=== PATIENT | female | born 1935 | race Caucasian/White ===

== ENCOUNTER 2021-07-17 03:56 | Emergency (ER) | payer MEDICARE, OTHER ==
[~2021-07-17] VITALS: Ht 160 cm; Wt 55.3 kg
[~2021-07-17 03:56] MED LIST: ATENPOW10; LEVOTHYROXINE
[2021-07-17] MEDS ORDERED: SODIUM CHLORIDE 0.9% 500 ML IVB ONE (08:15)
[2021-07-17] MEDS ORDERED: METOCLOPRAMIDE HCL 5MG/ml INJ 2ml VIAL IV ONE (08:15)
[2021-07-17] MEDS ORDERED: HYDROmorphone HCL 2 MG/ML VL/or syr IV ONE (08:15)
[2021-07-17] MEDS ORDERED: SODIUM CHLORIDE 0.9% 1,000 ML IV ONE (08:15)
[2021-07-17 09:27] LABS: Basophils # (auto) 0 10 ^3/uL (0-0.2); Basophils % (auto) 1.3 % (0.0-2.0); Eosinophils # (auto) 0 10 ^3/uL (0-0.8); Eosinophils % (auto) 0.1 % (0.0-7.0); Hemoglobin 13.3 g/dL (12.2-16.2); Mean Corpuscular Hemoglobin 31.5 pg (28.0-32.0); Mean Corpuscular Hgb Conc. 35.1 g/dL (32.0-36.0); Mean Corpuscular Volume 89.7 fL (80.0-100.0); Monocytes # (auto) 0.5 10 ^3/uL (0-1.3); Monocytes % (auto) 15.4 % (0.0-12.0); Neutrophils # (auto) 1.4 10 ^3/uL (1.6-8.6); Neutrophils % (auto) 49.2 % (37.0-80.0); Red Blood Cells 4.23 10^6/uL (4.0-5.20); Red Cell Distribution Width 22.1 % (11.8-14.3); White Blood Cell 2.9 10^3/uL (4.4-10.8)
[2021-07-17 09:32] LABS: INR 1.05 (0.9-1.15); Partial Thromboplastin Time 27.5 sec (23.6-33.0)
[2021-07-17 11:24] LABS: Urine Bacteria NONE SEEN /hpf (None Seen); Urine Blood Negative /uL (Negative); Urine Specific Gravity 1.009 (1.001-1.035); Urine WBC 7 /hpf (0 - 5)
[2021-07-17 11:44] LABS: Albumin 1.8 g/dL (3.4-5.0); Calcium 6.6 mg/dL (8.5-10.1); Magnesium 1.9 mg/dL (1.6-2.6)
[2021-07-17 11:47] LABS: Bilirubin, Total 0.9 mg/dL (0.2-1.0); Total Protein 4.3 g/dL (6.4-8.2)
[2021-07-17 12:24] LABS: Potassium 2.1 mmol/L (3.5-5.1)
[2021-07-17] MEDS ORDERED: POTASSIUM EFFERVESENT TAB 25 MEQ PO ONE ×2 (12:30→15:00)
[2021-07-17] MEDS ORDERED: CALCIUM GLUC 1,000mg/50ml-NS 50 ML IV ONE (15:00)
[2021-07-17] MEDS ORDERED: IOHEXOL 300 MG/ML 100ML BOTTLE IJ ONE (15:03)
[2021-07-17] MEDS ORDERED: FLEET MINERAL OIL ENEMA 133 ML PR ONE (16:15)
[2021-07-17] MEDS ORDERED: SODIENE35 RE (18:27)
[2021-07-17] MEDS ORDERED: MAGNSUS48 PO (18:27)
[2021-07-17 18:58] VITALS: BP 146/78
== END 2021-07-17 19:03 | disposition home or self-care (01) ==
LOC: EDBD 03:56 → ER 03:56 → EDUNIT# 03:56 → ER 19:03
DX: R10.9 Unspecified abdominal pain (principal); K59.01 Slow transit constipation; R33.9 Retention of urine, unspecified; E87.6 Hypokalemia; E43 Unspecified severe protein-calorie malnutrition; Z85.038 Personal history of other malignant neoplasm of large intestine
CPT/HCPCS: 36415; 51701; 71045; 74177; 80053; 81001; 83690; 83735; 85025; 85610; 85730; 93005; 96361; 96365; 99285; J0610; J7030; J7040; Q9967